=== PATIENT | male | born 1955 | race Hispanic/Latino ===

== ENCOUNTER 2021-05-27 06:26 | Day surgery (SDC) | payer OTHER, MEDICARE ==
[2021-05-26 12:32] LABS: BASOPHILS % (AUTO) 0.6 % (0.0-5.0); EOSINOPHILS % (AUTO) 3.1 % (0.0-8.0); HEMATOCRIT 46.1 % (42-54); LYMPHOCYTES % (AUTO) 25.6 % (21.0-51.0); MEAN CORPUSCULAR HEMOGLOBIN 28.3 pg (27.0-33.0); MEAN CORPUSCULAR HGB CONC 31.7 g/dL (32.0-36.0); MEAN CORPUSCULAR VOLUME 89.5 fL (79-99); MONOCYTES % (AUTO) 7.1 % (3.0-13.0); NEUTROPHILS % (AUTO) 62.7 % (40.0-77.0); PLATELET COUNT (AUTO) 166 K/uL (130-400); RED BLOOD CELL COUNT(AUTO) 5.15 MIL/uL (4.50-6.20); RED CELL DISTRIBUTION WIDTH 13.9 % (11.0-15.5); WHITE BLOOD COUNT (AUTO) 6.5 K/uL (4.8-10.8)
[2021-05-26 12:42] LABS: CREATININE 1.2 mg/dL (0.5-1.5); POTASSIUM 3.8 mmol/L (3.5-5.1)
[2021-05-26 12:46] LABS: INR 1.1 (0.85-1.15); PROTHROMBIN TIME 11.9 SEC (9.6-11.6)
[2021-05-26 12:47] LABS: PARTIAL THROMBOPLASTIN TIME 27.6 SEC (26.3-35.5)
[2021-05-27] VITALS (22 sets, daily range): BP systolic 123–159; BP diastolic 66–110
[~2021-05-27] VITALS: Ht 172.7 cm; Wt 86.9 kg
[~2021-05-27 06:26] MED LIST: AEC81 PO; APIX5TAB PO; DICL100T85 PO; LOSA50TA64 PO
[2021-05-27] MEDS ORDERED: MIDAZOLAM HCL 1 MG/ML 2ML VIAL ONE (06:37)
[2021-05-27] MEDS ORDERED: DEXAMETHASONE SOD PHOSPHATE 10MG/ML 1ML VIAL ONE (06:37)
[2021-05-27] MEDS ORDERED: SUCCINYLCHOLINE CHLORIDE 20 MG/ML 10 ML VIAL ONE (06:37)
[2021-05-27] MEDS ORDERED: LIDOCAINE PF 100MG/5ML (2%) SYRINGE 5ML ONE (06:37)
[2021-05-27] MEDS ORDERED: ONDANSETRON 4MG INJ ONE (06:38)
[2021-05-27] MEDS ORDERED: PROPOFOL 10 MG/ML 20ML VIAL IV ONE ×2 (06:38→08:22)
[2021-05-27] MEDS ORDERED: ROCURONIUM 10MG/1ML SYR 10 MG/ML ML ONE (06:38)
[2021-05-27] MEDS ORDERED: GLYCOPYRROLATE 1 MG/5 ML SYRINGE ONE (06:38)
[2021-05-27] MEDS ORDERED: FENTANYL CITRATE PF 50 MCG/1 ML 2ML VIAL ONE (06:38)
[2021-05-27] MEDS ORDERED: NEOSTIGMINE 5MG/5ML SYR IV ONE (06:38)
[2021-05-27] MEDS ORDERED: CEFAZOLIN SODIUM 1 GM VIAL ONE (06:57)
[2021-05-27] MEDS ORDERED: LACTATED RINGERS 1000ML 1,000 ML IV ONE (06:57)
[2021-05-27] MEDS ORDERED: METOPROLOL ER PO (07:11)
[2021-05-27] MEDS ORDERED: LIDOCAINE 1%-EPI 1:100,000 20 ML VIAL IJ SCH (07:30)
[2021-05-27] MEDS: CEFAZOLIN SODIUM 1 GM VIAL IVP ONE ×2 (07:54→08:04)
[2021-05-27] MEDS ORDERED: ESMOLOL HCL 10 MG/ML 10 ML VIAL ONE (08:21)
[2021-05-27] MEDS ORDERED: HYDRALAZINE 20MG/ML VIAL ONE (09:06)
[2021-05-27] MEDS ORDERED: RACEPINEPHRINE HCL 2.25% 0.5 ML NEB SOLN ONE (09:09)
[2021-05-27] MEDS ORDERED: OXYMETAZOLINE HCL SPRAY 15 ML BOTTLE NS SCH (10:00)
== END 2021-05-27 14:05 | disposition home or self-care (01) ==
LOC: DAH 06:26
PROVIDERS: ATTEND Otolaryngology Plastic Surgery within the Head & Neck
DX: R49.0 Dysphonia (principal); Z20.822 Contact with and (suspected) exposure to COVID-19; J38.4 Edema of larynx; I25.2 Old myocardial infarction; Z83.3 Family history of diabetes mellitus; Z82.49 Family history of ischemic heart disease and other diseases of the circulatory system; Z80.9 Family history of malignant neoplasm, unspecified; Z87.891 Personal history of nicotine dependence; Z90.89 Acquired absence of other organs; Z90.49 Acquired absence of other specified parts of digestive tract; Z98.890 Other specified postprocedural states; Z92.3 Personal history of irradiation; Z79.82 Long term (current) use of aspirin; Z79.899 Other long term (current) drug therapy; Z79.01 Long term (current) use of anticoagulants
CPT/HCPCS: 31536; 36415; 71045; 80048; 82948; 85025; 85610; 85730; 87635; 88305 ×2; 88331; 88341 ×2; 88342 ×2; 94640; A4215; A4221; A4222; A4223; A4600; A4663; A4930; C9803; J0330; J0360; J0690; J1100; J2001; J2250; J2405; J2704 ×2; J2710; J3010; J3490 ×2; J7120